=== PATIENT | female | born 1945 | race Caucasian/White ===

== ENCOUNTER 2017-05-27 07:28 | Day surgery (SDC) | payer MEDICARE, OTHER ==
[~2017-05-27] VITALS: Ht 165.1 cm; Wt 52.6 kg
[~2017-05-27 07:28] MED LIST: ALPR1 PO; AMOCLA875 PO; CLIN300 PO; DIAZ10; DOXE25; DOXY100; ESCI10; Estrace Vagin42.5 GM; FAMO40 PO; FLORIFY; FLUO10; FLUO20 PO; INDO25; MELA3 PO; MOMENI; MORP30 PO; NASACORT10.8 ML; ONDA4ODT MM; PERICOLACE; TOPI100 PO; TOPIRAMATE ER200 MG; XARELTO
== END 2017-05-27 10:32 | disposition home or self-care (01) ==
LOC: ORSCSDS 07:28
DX: Z12.11 Encounter for screening for malignant neoplasm of colon (principal); D12.0 Benign neoplasm of cecum; D12.2 Benign neoplasm of ascending colon; D12.3 Benign neoplasm of transverse colon; K64.4 Residual hemorrhoidal skin tags; K64.8 Other hemorrhoids; K63.89 Other specified diseases of intestine; K57.30 Diverticulosis of large intestine without perforation or abscess without bleeding; E03.9 Hypothyroidism, unspecified; E78.00 Pure hypercholesterolemia, unspecified; F41.9 Anxiety disorder, unspecified; J45.909 Unspecified asthma, uncomplicated; Z86.010 Personal history of colon polyps; Z87.891 Personal history of nicotine dependence; Z79.899 Other long term (current) drug therapy
CPT/HCPCS: 88305; J2405

== ENCOUNTER → 2017-10-27 | Outpatient (CLI) | payer MEDICARE, OTHER | END | disposition home or self-care (01) | LOC: LAB 12:57 → LAB SHORT 12:57 | PROVIDERS: Nurse Practitioner Women's Health | DX: Z12.4 Encounter for screening for malignant neoplasm of cervix (principal); Z91.89 Other specified personal risk factors, not elsewhere classified | CPT/HCPCS: 87624; G0123 ==

== ENCOUNTER 2017-11-30 06:36 | Day surgery (SDC) | payer MEDICARE, OTHER ==
[~2017-11-30] VITALS: Ht 165.1 cm; Wt 50.5 kg
[2017-11-30] MEDS ORDERED: PRAZ1 (07:21)
[2017-11-30] MEDS ORDERED: THYROGEN (07:22)
== END 2017-11-30 09:07 | disposition home or self-care (01) ==
LOC: ORSCSDS 06:36
PROVIDERS: Internal Medicine Gastroenterology
PROC: 0DBN8ZX Excision of Sigmoid Colon, Via Natural or Artificial Opening Endoscopic, Diagnostic (ICD-10-PCS; principal; 2017-11-30 08:00)
DX: Z86.010 Personal history of colon polyps (principal); D12.5 Benign neoplasm of sigmoid colon; K63.89 Other specified diseases of intestine; K64.4 Residual hemorrhoidal skin tags; K64.8 Other hemorrhoids; K57.30 Diverticulosis of large intestine without perforation or abscess without bleeding; F41.9 Anxiety disorder, unspecified; E78.00 Pure hypercholesterolemia, unspecified; Z87.891 Personal history of nicotine dependence
CPT/HCPCS: J0330; J1980; J2405

== ENCOUNTER → 2018-11-02 | Outpatient (CLI) | payer MEDICARE, OTHER ==
[~2018-11-02] MED LIST changes: +ACIDOPHILUS1 EACH PO; +Armour Thyroid15 MG PO; +Cyclobenzaprine5 MG PO; +DIAZ10 PO; +ESCI20 PO; +LINZESS145 MCG PO; +Norco 10-325 T1 EACH PO; +PRAZ1; +PROAIR RESPICL90 MCG INH; +PROZAC20 MG PO; +Prazosin HCl2 MG PO; +QVAR REDIHALE10.6 GM INH; +THYROGEN; +TOPIRAMATE ER200 MG PO; +VITAMIN D35000 UNIT PO; +Voltaren100 GM TOP
[2018-11-03 15:07] LABS: HPV 16 Negative (Negative); HPV 18 Negative (Negative); HPV OTHER HR TYPES Negative (Negative)
== END | disposition home or self-care (01) ==
LOC: LAB 12:16 → LAB SHORT 12:16
PROVIDERS: Nurse Practitioner Women's Health
DX: Z12.4 Encounter for screening for malignant neoplasm of cervix (principal); Z91.89 Other specified personal risk factors, not elsewhere classified
CPT/HCPCS: 87624; G0123

== ENCOUNTER 2018-12-01 08:53 | Day surgery (SDC) | payer MEDICARE, OTHER ==
[~2018-12-01] VITALS: Ht 162.6 cm; Wt 50.2 kg
[~2018-12-01 08:53] MED LIST changes: -Cyclobenzaprine5 MG PO; -DIAZ10 PO; -Voltaren100 GM TOP
[2019-02-06] MEDS ORDERED: DIAZ10 PO (14:42)
== END 2018-12-01 11:55 | disposition home or self-care (01) ==
LOC: ORSCSDS 08:53
PROVIDERS: Internal Medicine Gastroenterology
PROC: 0DBL8ZX Excision of Transverse Colon, Via Natural or Artificial Opening Endoscopic, Diagnostic (ICD-10-PCS; principal; 2018-12-01 10:15)
PROC: 0DBK8ZX Excision of Ascending Colon, Via Natural or Artificial Opening Endoscopic, Diagnostic (ICD-10-PCS; principal; 2018-12-01 10:15)
PROC: 0DBN8ZX Excision of Sigmoid Colon, Via Natural or Artificial Opening Endoscopic, Diagnostic (ICD-10-PCS; principal; 2018-12-01 10:15)
PROC: 0DBP8ZX Excision of Rectum, Via Natural or Artificial Opening Endoscopic, Diagnostic (ICD-10-PCS; principal; 2018-12-01 10:15)
DX: Z12.11 Encounter for screening for malignant neoplasm of colon (principal); Z86.010 Personal history of colon polyps; D12.2 Benign neoplasm of ascending colon; D12.3 Benign neoplasm of transverse colon; D12.5 Benign neoplasm of sigmoid colon; K62.1 Rectal polyp; K57.30 Diverticulosis of large intestine without perforation or abscess without bleeding; K64.8 Other hemorrhoids; K64.4 Residual hemorrhoidal skin tags; Z87.891 Personal history of nicotine dependence; J44.9 Chronic obstructive pulmonary disease, unspecified; E03.9 Hypothyroidism, unspecified; Z79.899 Other long term (current) drug therapy
CPT/HCPCS: 88305; J2704; J7120

== ENCOUNTER 2019-01-07 04:13 | Emergency (ER) | payer MEDICARE, OTHER ==
[~2019-01-07] VITALS: Ht 165.1 cm; Wt 51.7 kg
[2019-01-07 04:40] LABS: BASOPHILS ABSOLUTE AUTO 0.05 K/mm3 (0.00-0.23); BASOPHILS PERCENT AUTO 1 % (0-2); EOSINOPHILS ABSOLUTE AUTO 0.14 K/mm3 (0.00-0.68); EOSINOPHILS PERCENT AUTO 2 % (0-6); IMMATURE GRAN ABSOLUTE AUTO 0.02 K/mm3 (0.00-0.10); IMMATURE GRAN PERCENT AUTO 0 % (0-1); LYMPHOCYTES ABSOLUTE AUTO 1.03 K/mm3 (0.84-5.20); LYMPHOCYTES PERCENT AUTO 16 % (21-46); MONOCYTES PERCENT AUTO 8 % (4-13); Mean Corpuscular HGB 30.3 pg (26.0-34.0); Mean Corpuscular HGB Conc 32.5 g/dL (31.5-36.5); Mean Corpuscular Volume 93 fL (80-100); Mean Platelet Volume 9.2 fL (9.1-12.4); NEUTROPHILS ABSOLUTE AUTO 4.73 K/mm3 (1.96-9.15); NEUTROPHILS PERCENT AUTO 73 % (41-73); Platelet Count 223 K/mm3 (150-400); RDW Coefficient Variation 14.6 % (11.7-14.2); Red Blood Cell Count 4.29 M/mm3 (3.80-5.20); White Blood Cell Count 6.47 K/mm3 (4.00-11.30)
[2019-01-07 05:02] LABS: Alanine Aminotransfer (ALT/SGP 21 U/L (12-78); Albumin, Blood 3.4 g/dL (3.4-5.0); Alk Phos 69 U/L (50-136); Anion Gap 6 mmol/L (6-16); Aspartate Aminotrans (AST/SGOT 20 U/L (12-37); Bilirubin, Total 0.3 mg/dL (0.1-1.0); Blood Urea Nitrogen 21 mg/dL (8-24); Bun/Creatinine Ratio 34.7 (12.0-20.0); CO2, Blood 22 mmol/L (21-32); Chloride, Blood 115 mmol/L (98-108); Creatinine, Blood 0.61 mg/dL (0.40-1.00); Globulin, Blood 3.3 g/dL (2.2-4.0); Glomerular Filtration Rate >60 (60-); Glucose, Blood 120 mg/dL (70-99); Potassium, Blood 3.5 mmol/L (3.5-5.5); Sodium, Blood 143 mmol/L (136-145); Total Protein, Blood 6.7 g/dL (6.4-8.2)
[2019-01-07] MEDS ORDERED: Voltaren100 GM TOP (06:04)
[2019-01-07] MEDS ORDERED: Cyclobenzaprine5 MG PO (06:04)
[2019-02-06] MEDS ORDERED: DIAZ10 PO (14:42)
== END 2019-01-07 06:18 | disposition home or self-care (01) ==
LOC: ER 04:13
PROVIDERS: Emergency Medicine
DX: M62.830 Muscle spasm of back (principal); R51 Headache; Z87.891 Personal history of nicotine dependence; Z88.2 Allergy status to sulfonamides; Z88.8 Allergy status to other drugs, medicaments and biological substances; Z88.5 Allergy status to narcotic agent; Z79.899 Other long term (current) drug therapy
CPT/HCPCS: 36415; 80053; 85025; 96361; 96374; 96375; 99284-25; A9270; J1885; J2270; J7030

== ENCOUNTER 2019-02-14 08:14 | Day surgery (SDC) | payer MEDICARE, OTHER ==
[~2019-02-14] VITALS: Ht 162.6 cm; Wt 52.4 kg
[~2019-02-14 08:14] MED LIST changes: +Cyclobenzaprine5 MG PO; +DIAZ10 PO; +Voltaren100 GM TOP
--- NOTE | 2019-02-14 08:57 | NUR ---
02/14/19 0857 JENNY CRABTREE 1 IV ATTEMPT VEIN BLEW 2 IV ATTEMPT IN RWRST SUCCESSFUL
== END 2019-02-14 10:12 | disposition home or self-care (01) ==
LOC: ORSCSDS 08:14
PROVIDERS: Internal Medicine Gastroenterology
PROC: 0DB68ZX Excision of Stomach, Via Natural or Artificial Opening Endoscopic, Diagnostic (ICD-10-PCS; principal; 2019-02-14 09:30)
DX: D13.1 Benign neoplasm of stomach (principal); Z87.891 Personal history of nicotine dependence
CPT/HCPCS: 88305; 88342; J0330; J0461; J2405; J2704; J7120

== ENCOUNTER 2020-11-19 06:34 | Day surgery (SDC) | payer MEDICARE, OTHER ==
[~2020-11-19] VITALS: Ht 162.6 cm; Wt 50.8 kg
== END 2020-11-19 09:13 | disposition home or self-care (01) ==
LOC: ORSCSDS 06:34
PROVIDERS: Internal Medicine Gastroenterology
PROC: 0DBK8ZX Excision of Ascending Colon, Via Natural or Artificial Opening Endoscopic, Diagnostic (ICD-10-PCS; principal; 2020-11-19 08:00)
PROC: 0DBL8ZX Excision of Transverse Colon, Via Natural or Artificial Opening Endoscopic, Diagnostic (ICD-10-PCS; principal; 2020-11-19 08:00)
PROC: 0DB68ZX Excision of Stomach, Via Natural or Artificial Opening Endoscopic, Diagnostic (ICD-10-PCS; principal; 2020-11-19 08:00)
DX: Z12.11 Encounter for screening for malignant neoplasm of colon (principal); Z85.028 Personal history of other malignant neoplasm of stomach; Z86.010 Personal history of colon polyps; D12.3 Benign neoplasm of transverse colon; D12.4 Benign neoplasm of descending colon; K64.8 Other hemorrhoids; K64.4 Residual hemorrhoidal skin tags; K57.30 Diverticulosis of large intestine without perforation or abscess without bleeding; K63.89 Other specified diseases of intestine; Z87.891 Personal history of nicotine dependence; Z79.899 Other long term (current) drug therapy
CPT/HCPCS: 88305; 88342; J2704; J7120

== ENCOUNTER → 2022-02-03 | Outpatient (CLI) | payer MEDICARE, OTHER ==
[2022-02-03 14:34] LABS: Source, Urine Clean Catch
[2022-02-03 17:32] LABS: Appearance, Urine Clear (Clear); Bilirubin, Urine Neg (Neg); Blood, Urine Neg (Neg); Color, Urine Yellow (P-Yellow); Glucose Qualitative, Urine Neg (Neg); Ketones, Urine Neg (Neg); Leukocyte Esterase, Urine Neg (Neg); Nitrite, Urine Neg (Neg); Protein, Urine Neg (Neg); Urobilinogen, Urine NORM (Normal)
== END | disposition home or self-care (01) ==
LOC: LAB SHORT 14:33 → LAB 14:33
PROVIDERS: Internal Medicine
DX: R30.0 Dysuria (principal)
CPT/HCPCS: 81003

== ENCOUNTER 2024-06-15 08:13 | Day surgery (SDC) | payer MEDICARE, OTHER ==
[~2024-06-15] VITALS: Ht 162.6 cm; Wt 47.2 kg
[~2024-06-15 08:13] MED LIST changes: +CEPH500 PO; +HYDR1TAB94 PO; +OXYC5 PO; +Robaxin750 MG PO
[2024-06-15] MEDS ORDERED: NEURONTIN300 MG (08:52)
[2024-06-15] MEDS ORDERED: BRINTELLIX10 MG (08:54)
[2024-06-15] MEDS ORDERED: propofoL 50 ML IV ONE (09:05)
[2024-06-15] MEDS ORDERED: Lactated Ringer's 1,000 ML IV ONE ×2 (09:06→09:11)
--- NOTE | 2024-06-15 11:11 | NUR ---
06/15/24 Cailin Wright WHEN ASKED PT. IF SHE HAD ANY PAIN, PT. STATED "MY EYES". PER PT. & PT. THIS IS A NORMAL THING FOR HER. PER PT. IT'S THE LIGHTS. BRIGHT LIGHTS TURNED OFF FOR PT. PT. VERBALIZED THAT THAT WAS BETTER.
[2024-06-15 11:14] VITALS: BP 116/76
== END 2024-06-15 10:50 | disposition home or self-care (01) ==
LOC: ORSCSDS 08:13
PROVIDERS: Internal Medicine Gastroenterology
PROC: 0DBL8ZX Excision of Transverse Colon, Via Natural or Artificial Opening Endoscopic, Diagnostic (ICD-10-PCS; principal; 2024-06-15 09:30)
PROC: 0DB78ZX Excision of Stomach, Pylorus, Via Natural or Artificial Opening Endoscopic, Diagnostic (ICD-10-PCS; principal; 2024-06-15 09:30)
PROC: 0DBK8ZX Excision of Ascending Colon, Via Natural or Artificial Opening Endoscopic, Diagnostic (ICD-10-PCS; principal; 2024-06-15 09:30)
DX: K31.7 Polyp of stomach and duodenum (principal); Z12.11 Encounter for screening for malignant neoplasm of colon; Z86.0100 Personal history of colon polyps, unspecified; D12.3 Benign neoplasm of transverse colon; D12.2 Benign neoplasm of ascending colon; K63.89 Other specified diseases of intestine; K57.30 Diverticulosis of large intestine without perforation or abscess without bleeding; K64.4 Residual hemorrhoidal skin tags; E78.00 Pure hypercholesterolemia, unspecified; Z87.891 Personal history of nicotine dependence; E03.9 Hypothyroidism, unspecified; Z79.899 Other long term (current) drug therapy; I10 Essential (primary) hypertension
CPT/HCPCS: 88305; J2704; J7120